=== PATIENT | male | born 1965 | race Caucasian/White ===

== ENCOUNTER 2018-02-06 07:11 | Emergency (ER) | payer OTHER ==
[2018-02-06] MEDS: IBUPROFEN 800 MG TAB PO (08:15)
[2018-02-06] MEDS: LISINOPRIL 20 MG TAB PO (08:15)
== END 2018-02-06 09:06 | disposition home or self-care (01) ==
LOC: M ED 07:11
DX: M19.042 Primary osteoarthritis, left hand (principal); I10 Essential (primary) hypertension; M47.9 Spondylosis, unspecified; F17.200 Nicotine dependence, unspecified, uncomplicated; Z88.0 Allergy status to penicillin; Z79.899 Other long term (current) drug therapy
CPT/HCPCS: 73130

== ENCOUNTER → 2018-02-16 | Outpatient (CLI) | payer MEDICARE ==
[2018-02-16 14:02] LABS: RHEUMATOID FACTOR QUANT < 10.0 IU/ML (<15.0)
[2018-02-16 14:16] LABS: ERYTHROCYTE SEDIMENTATION RATE 41 mm/hr (0-20)
== END ==
LOC: M WUC 08:39
DX: M79.642 Pain in left hand (principal)
CPT/HCPCS: 36415

== ENCOUNTER 2018-07-14 06:34 | Emergency (ER) | payer OTHER, MEDICARE ==
[~2018-07-14] VITALS: Ht 165.1 cm; Wt 59.1 kg
[~2018-07-14 06:34] MED LIST: LISI-538 PO
[2018-07-14 06:54] VITALS: BP 210/125
[2018-07-14] MEDS ORDERED: MOBI4TAB PO (06:56)
== END 2018-07-14 07:24 | disposition home or self-care (01) ==
LOC: M ED 06:34
DX: M70.22 Olecranon bursitis, left elbow (principal); I10 Essential (primary) hypertension; Z79.899 Other long term (current) drug therapy; Z88.0 Allergy status to penicillin

== ENCOUNTER → 2018-08-15 | Outpatient (CLI) | payer MEDICARE, OTHER ==
[~2018-08-15] MED LIST changes: +MOBI4TAB PO
[2018-08-15 13:01] LABS: BLOOD UREA NITROGEN 11 MG/DL (7-18); CALCIUM LEVEL 9.5 MG/DL (8.5-10.1); CARBON DIOXIDE LEVEL 25 MEQ/L (21-32); CHLORIDE LEVEL 86 MEQ/L (98-107); CREATININE FOR GFR 1.27 MG/DL (0.70-1.30); GLOMERULAR FILTRATION RATE > 60.0 (>56); GLUCOSE, FASTING 90 MG/DL (70-100); POTASSIUM SERUM 4.4 MEQ/L (3.5-5.1); SODIUM LEVEL 124 MEQ/L (136-145)
== END ==
LOC: M WUC 09:25
PROVIDERS: ATTEND Nurse Practitioner Family
DX: I10 Essential (primary) hypertension (principal)

== ENCOUNTER → 2018-09-06 | Outpatient (CLI) | payer MEDICARE, OTHER ==
[2018-09-06 13:01] LABS: BLOOD UREA NITROGEN 10 MG/DL (7-18); CALCIUM LEVEL 9.2 MG/DL (8.5-10.1); CARBON DIOXIDE LEVEL 28 MEQ/L (21-32); CHLORIDE LEVEL 87 MEQ/L (98-107); CREATININE FOR GFR 1.02 MG/DL (0.70-1.30); GLOMERULAR FILTRATION RATE > 60.0 (>56); GLUCOSE, FASTING 100 MG/DL (70-100); POTASSIUM SERUM 4.1 MEQ/L (3.5-5.1); SODIUM LEVEL 124 MEQ/L (136-145)
== END ==
LOC: M WUC 09:08
PROVIDERS: ATTEND Nurse Practitioner Family
DX: I10 Essential (primary) hypertension (principal)

== ENCOUNTER → 2018-09-09 | Outpatient (CLI) | payer MEDICARE, OTHER ==
--- NOTE | 2018-09-09 11:43 | REP ---
Urinary tract sonography with renal artery Doppler flow assessment: History: Essential hypertension. Morphologic findings: Renal cortical echogenicity pattern is normal and contours are smooth. The right kidney measures 11.2 x 5.3 x 3.5 cm. Left renal dimensions are 10.2 x 5.4 x 4.8 cm. No hydronephrosis is seen on either side. 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 There is a 1.1 cm hyperechoic area in the right kidney consistent with renal angiomyolipoma or lipoma versus normal fat in a cortical scar. No other morphologic abnormality is seen in the kidneys. The prostate appears somewhat enlarged measuring 3.5 x 3.7 x 3.8 cm on transabdominal imaging with a calculated glandular volume 25.7 ml. Renal artery Doppler evaluation: Peak systolic flow velocity in the abdominal aorta at the level of the main renal arteries is normal at 80.0 cm/s. Peak systolic flow velocity in the right main renal artery is normal at 113 and that in the left is normal at 104 cm/s. Renal to aortic flow velocity ratios are therefore normal, 1.4 on the right and 1.3 on the left. Resistive indices and acceleration times are measured in the intralobar arteries of the upper, mid, and lower pole of each kidney and these values are normal bilaterally. 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 Mildly enlarged prostate. No evidence to suggest renal artery stenosis by Doppler. Electronically Signed by Abhilash Xiong MD 09/09/2018 03:34 P
== END ==
LOC: M RAD 08:26
PROVIDERS: ATTEND Nurse Practitioner Family
DX: I10 Essential (primary) hypertension (principal); N40.0 Benign prostatic hyperplasia without lower urinary tract symptoms

== ENCOUNTER → 2018-09-22 | Outpatient (CLI) | payer MEDICARE, OTHER ==
[2018-09-22 12:53] LABS: BLOOD UREA NITROGEN 10 MG/DL (7-18); CALCIUM LEVEL 8.7 MG/DL (8.5-10.1); CARBON DIOXIDE LEVEL 23 MEQ/L (21-32); CHLORIDE LEVEL 97 MEQ/L (98-107); CREATININE FOR GFR 1.02 MG/DL (0.70-1.30); GLOMERULAR FILTRATION RATE > 60.0 (>56); GLUCOSE, FASTING 79 MG/DL (70-100); POTASSIUM SERUM 4.7 MEQ/L (3.5-5.1); SODIUM LEVEL 130 MEQ/L (136-145)
== END ==
LOC: M WUC 08:39
PROVIDERS: ATTEND Nurse Practitioner Family
DX: I10 Essential (primary) hypertension (principal)

== ENCOUNTER → 2018-10-07 | Outpatient (CLI) | payer MEDICARE, OTHER ==
[2018-10-07 13:00] LABS: APPEARANCE, URINE CLEAR (CLEAR); BACTERIA, URINE AUTO NEGATIVE (NEGATIVE); BILIRUBIN, URINE AUTO NEGATIVE (NEGATIVE); BLOOD, URINE BLOOD 1+ (NEGATIVE); COLOR, URINE YELLOW (YELLOW); GLUCOSE, URINE (UA) AUTO NEGATIVE (NEGATIVE); KETONE, URINE AUTO NEGATIVE (NEGATIVE); LEUKOCYTE ESTERASE, URINE AUTO NEGATIVE (NEGATIVE); NITRITE, URINE AUTO NEGATIVE (NEGATIVE); PROTEIN, URINE AUTO NEGATIVE (NEGATIVE); RBC, URINE AUTO 1 /HPF (0-3); SPECIFIC GRAVITY URINE AUTO 1.006 (1.002-1.035); SQUAMOUS EPITHELIAL CELL UR AU 0 /HPF (0-6); UROBILINOGEN, URINE AUTO 0.2 mg/dL (0.0-2.0); WBC, URINE AUTO 1 /HPF (0-3)
[2018-10-07 13:12] LABS: OSMOLALITY URINE 293 MOSM/KG (500-800)
[2018-10-07 14:27] LABS: BLOOD UREA NITROGEN 7 MG/DL (7-18); CALCIUM LEVEL 9.2 MG/DL (8.5-10.1); CARBON DIOXIDE LEVEL 23 MEQ/L (21-32); CHLORIDE LEVEL 101 MEQ/L (98-107); CORTISOL BASELINE 12.2 UG/DL (4.3-22.4); CREATININE FOR GFR 0.97 MG/DL (0.70-1.30); GLOMERULAR FILTRATION RATE > 60.0 (>56); GLUCOSE, FASTING 91 MG/DL (70-100); POTASSIUM SERUM 5.1 MEQ/L (3.5-5.1); SODIUM LEVEL 134 MEQ/L (136-145)
== END ==
LOC: M WUC 08:39
PROVIDERS: ATTEND Nurse Practitioner Family
DX: E87.1 Hypo-osmolality and hyponatremia (principal)

== ENCOUNTER 2019-07-11 06:52 | Day surgery (SDC) | payer OTHER ==
[~2019-07-11] VITALS: Ht 165.1 cm; Wt 58.0 kg
[~2019-07-11 06:52] MED LIST changes: +AMLO10TA5 PO; +ATEN100T PO; +CLONI1TA PO; +LISI-672 PO; +LOPE2TAB12 PO; +sinus med PO
[2019-07-11] MEDS ORDERED: NS 1,000 ML IV ONE (07:30)
[2019-07-11] MEDS ORDERED: PROPOFOL 200 MG/20 ML VIAL As Ordered ONE (08:23)
[2019-07-11] MEDS ORDERED: LIDOCAINE 2% INJ 100 MG/5 ML SDV (FOR ANES.) As Ordered ONE (08:23)
--- NOTE | 2019-07-11 09:13 | ROOR ---
Patient Name: Dread Steven Procedure Date: 07/11/2019 8:18 AM Date of : 1965 Age: 54 Room: [facility] Gender: Male Note Status: Finalized Procedure: Colonoscopy Indications: High risk colon cancer surveillance: Personal history of colonic polyps Providers: Antelmo Stokes MD Referring MD: DRAKE MATA MD Requesting Provider: Medicines: Monitored Anesthesia Care Complications: No immediate complications. Procedure: Pre-Anesthesia Assessment: - Prior to the procedure, a History and Physical was performed, and patient medications and allergies were reviewed. The patient is competent. The risks and benefits of the procedure and the sedation options and risks were discussed with the patient. All questions were answered and informed consent was obtained. Patient identification and proposed procedure were verified by the physician, the nurse and the anesthesiologist in the procedure room. Mental Status Examination: alert and oriented. Airway Examination: normal oropharyngeal airway and neck mobility. Respiratory Examination: clear to auscultation. CV Examination: normal. Prophylactic Antibiotics: The patient does not require prophylactic antibiotics. Prior Anticoagulants: The patient has taken no previous anticoagulant or antiplatelet agents. ASA Grade Assessment: II - A patient with mild systemic disease. After reviewing the risks and benefits, the patient was deemed in satisfactory condition to undergo the procedure. The anesthesia plan was to use monitored anesthesia care (MAC). Immediately prior to administration of medications, the patient was re-assessed for adequacy to receive sedatives. The heart rate, respiratory rate, oxygen saturations, blood pressure, adequacy of pulmonary ventilation, and response to care were monitored throughout the procedure. The physical status of the patient was re-assessed after the procedure. The Colonoscope was introduced through the anus and advanced to the terminal ileum, with identification of the appendiceal orifice and IC valve. The colonoscopy was performed without difficulty. The patient tolerated the procedure well. The quality of the bowel preparation was good. The terminal ileum, ileocecal valve, appendiceal orifice, and rectum were photographed. The quality of the bowel preparation was good. The terminal ileum, ileocecal valve, appendiceal orifice, and rectum were photographed. Scope insertion time was 3 minutes. Scope withdrawal time was 9 minutes. The total duration of the procedure was 12 minutes. Findings: The perianal and digital rectal examinations were normal. The terminal ileum appeared normal. Six sessile polyps were found in the recto-sigmoid colon, ascending colon and cecum. The polyps were 5 to 8 mm in size. These polyps were removed with a jumbo cold forceps. Resection and retrieval were complete. Verification of patient identification for the specimen was done by the physician and nurse using the patient's name, date and medical record number. Estimated blood loss was minimal. Non-bleeding external and internal hemorrhoids were found during retroflexion. The hemorrhoids were medium-sized. Impression: - The examined portion of the ileum was normal. - Six 5 to 8 mm polyps at the recto-sigmoid colon, in the ascending colon and in the cecum, removed with a jumbo cold forceps. Resected and retrieved. - Non-bleeding external and internal hemorrhoids. Recommendation: - Patient has a contact number available for emergencies. The signs and symptoms of potential delayed complications were discussed with the patient. Return to normal activities tomorrow. Written discharge instructions were provided to the patient. - High fiber diet. - Continue present medications. - Await pathology results. - Repeat colonoscopy in 3 - 5 years for surveillance based on pathology results. - Telephone GI clinic for pathology results in 2 weeks. - Return to primary care physician. Antelmo Stokes MD Antelmo Stokes MD 07/11/2019 9:13:29 AM Electronically signed by Antelmo Stokes MD Number of Addenda: 0 Note Initiated On: 07/11/2019 8:18 AM Estimated Blood Loss: Estimated blood loss was minimal.
[2019-07-11 09:25] VITALS: BP 169/74
== END 2019-07-11 12:40 | disposition home or self-care (01) ==
LOC: M OPP 06:52
PROVIDERS: ATTEND Internal Medicine Gastroenterology
DX: K64.8 Other hemorrhoids (principal); K63.5 Polyp of colon; Z86.010 Personal history of colon polyps; F17.210 Nicotine dependence, cigarettes, uncomplicated; Z79.899 Other long term (current) drug therapy; Z88.0 Allergy status to penicillin

== ENCOUNTER 2019-11-04 08:43 | Emergency (ER) | payer OTHER ==
[~2019-11-04] VITALS: Ht 165.1 cm; Wt 56.3 kg
[2019-11-04] MEDS ORDERED: KETO10TAB PO (09:43)
[2019-11-04] MEDS ORDERED: KETOROLAC 60 MG/2 ML VIAL (J1885) IM ONE (09:45)
[2019-11-04] MEDS ORDERED: METH750T2 PO (09:49)
[2019-11-04] MEDS ORDERED: VOLT1GEL15 TOP (09:51)
[2019-11-04 10:22] VITALS: BP 129/86
== END 2019-11-04 10:25 | disposition home or self-care (01) ==
LOC: M ED 08:43
DX: M54.41 Lumbago with sciatica, right side (principal); M62.830 Muscle spasm of back; Z87.81 Personal history of (healed) traumatic fracture; F10.10 Alcohol abuse, uncomplicated; F17.200 Nicotine dependence, unspecified, uncomplicated; Z88.0 Allergy status to penicillin; Z79.899 Other long term (current) drug therapy
CPT/HCPCS: 36415; 80047; 96372; 99284; J1885

== ENCOUNTER → 2019-11-13 | Outpatient (CLI) | payer OTHER ==
[~2019-11-13] MED LIST changes: +KETO10TAB PO; +METH750T2 PO; +VOLT1GEL15 TOP
--- NOTE | 2019-11-13 10:36 | REP ---
REASON: Tobacco abuse. COMPARISON: 06/09/2006 which is the latest prior. As per the protocol only lung window images were sent to the read station for interpretation. There are no abnormal lung nodules. There is no significant change from the prior exam. Grossly the mediastinum and pulmonary alanis are unchanged and within normal limits. Grossly the imaged upper abdomen and imaged osseous structures are unchanged and within normal limits. IMPRESSION: Lung-RADS category 1 negative exam. Electronically Signed by Charles Grider DO 11/13/2019 11:52 A
== END ==
LOC: M RAD 09:27
PROVIDERS: ATTEND Student in an Organized Health Care Education/Training Program
DX: F17.210 Nicotine dependence, cigarettes, uncomplicated (principal)

== ENCOUNTER → 2019-11-17 | Outpatient (CLI) | payer OTHER, MEDICARE ==
[2019-11-17 10:48] LABS: BLOOD UREA NITROGEN 7 MG/DL (7-18); CALCIUM LEVEL 8.8 MG/DL (8.5-10.1); CARBON DIOXIDE LEVEL 26 MEQ/L (21-32); CHLORIDE LEVEL 98 MEQ/L (98-107); CREATININE FOR GFR 0.84 MG/DL (0.70-1.30); GLOMERULAR FILTRATION RATE > 60.0 (>56); GLUCOSE, FASTING 82 MG/DL (70-100); PHOSPHORUS LEVEL 3.6 MG/DL (2.5-4.9); POTASSIUM SERUM 4.7 MEQ/L (3.5-5.1); SODIUM LEVEL 130 MEQ/L (136-145)
[2019-11-17 10:57] LABS: PTH INTACT 89.1 PG/ML (18.5-88.0); TOTAL 25(OH) VITAMIN D 12.5 NG/ML (30.0-100.0)
--- NOTE | 2019-11-17 11:42 | REP ---
REASON FOR EXAM: Back pain. COMPARISON: 08/13/2014 There is no change in vertebral body height or alignment. Bone demineralization is again seen to be decreased. Anterior lipping and disc space narrowing at every level status quo. Persistent anterior wedge deformity is seen involving T9 status quo. IMPRESSION: No acute abnormalities. Stable appearing chronic changes as described above. Electronically Signed by Charles Grider DO 11/17/2019 12:12 P
--- NOTE | 2019-11-17 11:45 | REP ---
REASON: Back pain. COMPARISON: 08/13/2014 Vertebral body height and alignment is unchanged. Disc spacing stable. Small partial syndesmophytes unchanged to slightly increased at the L2-3 level on the left. Pedicles are unchanged. There is some essentially stable left pedicular sclerosis. IMPRESSION: Chronic changes as described above, which appear stable. Electronically Signed by Charles Grider DO 11/17/2019 12:12 P
== END ==
LOC: M LAB 09:18
PROVIDERS: ATTEND Student in an Organized Health Care Education/Training Program
DX: M81.0 Age-related osteoporosis without current pathological fracture (principal)

== ENCOUNTER → 2019-11-20 | Outpatient (CLI) | payer OTHER, MEDICARE ==
[2019-11-20 10:39] LABS: OSMOLALITY SERUM 268 MOSM/KG (275-295)
[2019-11-20 10:43] LABS: BLOOD UREA NITROGEN 3 MG/DL (7-18); CALCIUM LEVEL 8.7 MG/DL (8.5-10.1); CARBON DIOXIDE LEVEL 26 MEQ/L (21-32); CHLORIDE LEVEL 101 MEQ/L (98-107); CREATININE FOR GFR 0.84 MG/DL (0.70-1.30); GLOMERULAR FILTRATION RATE > 60.0 (>56); GLUCOSE, FASTING 78 MG/DL (70-100); POTASSIUM SERUM 4.8 MEQ/L (3.5-5.1); SODIUM LEVEL 133 MEQ/L (136-145); TOTAL 25(OH) VITAMIN D 10.1 NG/ML (30.0-100.0)
== END ==
LOC: M LAB 09:18
PROVIDERS: ATTEND Student in an Organized Health Care Education/Training Program
DX: E87.1 Hypo-osmolality and hyponatremia (principal)

== ENCOUNTER → 2019-11-21 | Outpatient (REF) | payer OTHER, MEDICARE ==
[2019-11-22 11:12] LABS: TOTAL VOLUME, URINE 2900 ML
[2019-11-22 11:17] LABS: SODIUM 24 HOUR URINE 171 MEQ/24HR (40-220); SODIUM, URINE 59 MEQ/L
== END ==
LOC: M LAB REF 09:04
PROVIDERS: ATTEND Student in an Organized Health Care Education/Training Program
DX: E87.1 Hypo-osmolality and hyponatremia (principal)

== ENCOUNTER → 2019-12-28 | Outpatient (CLI) | payer OTHER, MEDICARE ==
[~2019-12-28] MED LIST changes: -LISI-672 PO; +LISI30TA4 PO
--- NOTE | 2020-01-03 09:56 | DEXA ---
AP SPINE L1 - L4 0.840 -2.8 -2.9 LT FEMUR TOTAL 0.699 -2.4 -2.4 LT NECK 0.655 -2.8 -2.4 RT FEMUR TOTAL 0.710 -2.4 -2.3 RT NECK 0.621 -3.0 -2.7 TOTAL BODY TOTAL OTHER COMMENTS: There is osteoporosis of the spine and hips. The density of the spine has decreased 3.6% since 05/25/2005. The density of the left hip has decreased 22.1% since 05/25/2005. The density of the right hip has decreased 22.0% since 05/25/2005. The decreased density of the spine does represent a significant change. The decreased density of the left hip does represent a significant change. The decreased density of the right hip does represent a significant change. FOLLOW-UP: Recommendation for the next bone density exam: 2 years. SKIP
== END ==
LOC: M WHC 08:55
PROVIDERS: ATTEND Student in an Organized Health Care Education/Training Program
DX: M81.8 Other osteoporosis without current pathological fracture (principal)

== ENCOUNTER → 2020-05-28 | Outpatient (REF) | payer OTHER, MEDICARE ==
[~2020-05-28] MED LIST changes: -AMLO10TA5 PO; +AMLO1TAB25 PO
[2020-05-28 18:14] LABS: FREE T4 0.86 NG/DL (0.76-1.46); THYROID STIMULATING HORMONE 3.8 uIU/ML (0.358-3.740)
[2020-05-28 18:15] LABS: CORTISOL AM 17.9 UG/DL (4.3-22.4)
== END ==
LOC: M LAB REF 16:50
PROVIDERS: ATTEND Internal Medicine Nephrology
DX: E87.1 Hypo-osmolality and hyponatremia (principal)